=== PATIENT | male | born 1950 | race Caucasian/White ===

== ENCOUNTER 2017-10-07 18:51 | Emergency (ER) | payer MEDICARE ==
[~2017-10-07] VITALS: Ht 182.9 cm; Wt 97.7 kg
[2017-10-07] MEDS ORDERED: ASPIRIN 32325 MG/TAB PO (19:51)
[2017-10-07 20:00] LABS: MEAN CELL VOLUME 96 fl (80.0-100.0); MEAN CORPUSCULAR HGB CONC 33 g/dl (33.0-37.0); MEAN PLATELET VOLUME 10.7 fl (7.4-10.4); PLATELET COUNT 308 K/mm3 (130-400); REDCELL DISTRIBUTION WIDTH-CV 15.9 % (11.5-14.5)
[2017-10-07 20:01] LABS: HEMATOCRIT 55.8 % (42.0-52.0); HEMOGLOBIN 18.5 g/dl (13.5-18.0); MEAN CORPUSCULAR HEMOGLOBIN 32 pg (27.0-31.0)
[2017-10-07 20:08] LABS: ALBUMIN 4.3 gm/dL (3.5-5.0); BILIRUBIN,TOTAL 3.1 mg/dL (0.0-1.0); CALCIUM 10.3 mg/dL (8.4-10.2); CREATININE, serum 1.39 mg/dL (0.66-1.25); POTASSIUM 5.3 mmol/L (3.4-5.0)
[2017-10-07 20:12] LABS: ANISOCYTOSIS 1+; BAND 6 % (0-10); LYMPHOCYTE 13 % (20.0-51.0); NEUTROPHILS 71 % (42.0-75.2); PLATELET ESTIMATE NORMAL (NORMAL)
[2017-10-07 20:25] LABS: TROPONIN-I 0.064 ng/mL (0.000-0.034)
[2017-10-07 20:25] LABS: INR 1.6 (0.8-3.0); PROTHROMBIN TIME 18.6 SECONDS (9.7-12.8)
[2017-10-07 20:28] LABS: PARTIAL THROMBOPLASTIN TIME 29.3 SECONDS (26.0-37.0)
[2017-10-07 20:58] LABS: COLLECTION METHOD CLEAN CATCH
[2017-10-07 21:04] LABS: MUCOUS Present /lpf; PH 5 (5-8); SQUAMOUS EPITHELIAL 0-2 /hpf; URINE APPEARANCE Clear; URINE BACTERIA Rare /hpf; URINE BILIRUBIN Negative (NEGATIVE); URINE BLOOD Negative (NEGATIVE); URINE COLOR Amber; URINE GLUCOSE Negative (NEGATIVE); URINE KETONE Negative (NEGATIVE); URINE LEUKOCYTE ESTERASE Negative (NEGATIVE); URINE NITRATE Negative (NEGATIVE); URINE PROTEIN(semi-quant) 2+ (NEGATIVE); URINE UROBILINOGEN >=4.0 mg/dL (NEGATIVE)
[2017-10-08] MEDS ORDERED: CIALIS10 MG PO (00:35)
[2017-10-08 01:25] VITALS: BP 138/95; PULSE 118
== END 2017-10-08 01:52 | disposition short-term general hospital (02) ==
LOC: COL.ER 18:51
PROVIDERS: Emergency Medicine
DX: I50.9 Heart failure, unspecified (principal); R74.8 Abnormal levels of other serum enzymes; R79.89 Other specified abnormal findings of blood chemistry; Z87.891 Personal history of nicotine dependence; Z79.82 Long term (current) use of aspirin
CPT/HCPCS: J1940; J1956; J7030; Q9967

== ENCOUNTER 2017-11-12 15:21 | Outpatient (CLI) | payer SELFPAY ==
[~2017-11-12] VITALS: Ht 182.9 cm; Wt 88.1 kg
[~2017-11-12 15:21] MED LIST: ASPIRIN 32325 MG/TAB PO; CIALIS10 MG PO
[2017-11-12 16:14] VITALS: BP 118/82; PULSE 104; TEMP 97.7
== END 2017-11-12 17:41 | disposition home or self-care (01) ==
LOC: EUO 15:21
DX: I51.7 Cardiomegaly (principal); Z95.828 Presence of other vascular implants and grafts
CPT/HCPCS: J2997

== ENCOUNTER → 2019-02-14 | Outpatient (CLI) | payer MEDICARE, BC | LOC: COL.RAD 08:00 | DX: M19.012 Primary osteoarthritis, left shoulder (principal) | CPT/HCPCS: J3301; Q9967 ==

== ENCOUNTER → 2020-09-20 | Outpatient (CLI) | payer MEDICARE, BC | LOC: COL.RAD 08:15 | DX: M48.061 Spinal stenosis, lumbar region without neurogenic claudication (principal); M51.26 Other intervertebral disc displacement, lumbar region; M47.816 Spondylosis without myelopathy or radiculopathy, lumbar region; M47.817 Spondylosis without myelopathy or radiculopathy, lumbosacral region; M51.36 Other intervertebral disc degeneration, lumbar region ==

== ENCOUNTER → 2020-10-15 | Outpatient (CLI) | payer MEDICARE, BC | LOC: COL.RAD 10-05 13:15 | DX: G31.9 Degenerative disease of nervous system, unspecified (principal); R90.82 White matter disease, unspecified | CPT/HCPCS: A9585 ==

== ENCOUNTER 2022-05-08 21:57 | Emergency (ER) | payer MEDICARE, BC ==
[~2022-05-08] VITALS: Ht 182.9 cm; Wt 81.8 kg
[2022-05-08 22:13] VITALS: TEMP 98.4
[2022-05-08 23:04] LABS: BASO # 0.1 K/mm3 (0.0-0.2); BASO % 0.6 % (0.0-2.0); EOS # 0.2 K/mm3 (0.0-0.7); EOS % 2.4 % (0.0-4.0); GRAN # 6.2 K/mm3 (1.4-6.5); GRAN % 66.4 % (42.2-75.2); HEMATOCRIT 51.6 % (42.0-52.0); HEMOGLOBIN 17.2 g/dl (13.5-18.0); INR 1.1 (0.8-3.0); LYMPH # 1.9 K/mm3 (1.2-3.4); LYMPH % 20.3 % (20.0-51.0); MEAN CELL VOLUME 93 fl (80.0-100.0); MEAN CORPUSCULAR HEMOGLOBIN 31 pg (27-31); MEAN CORPUSCULAR HGB CONC 33 g/dl (33.0-37.0); MEAN PLATELET VOLUME 10.4 fl (7.4-10.4); MONO # 0.9 K/mm3 (0.1-0.6); MONO % 9.9 % (1.7-9.3); PLATELET COUNT 247 K/mm3 (130-400); PROTHROMBIN TIME 12.8 SECONDS (9.7-12.8); RED BLOOD COUNT 5.53 M/mm3 (4.20-5.60); REDCELL DISTRIBUTION WIDTH-CV 12.3 % (11.5-14.5)
[2022-05-08 23:11] LABS: ALANINE AMINOTRANSFERASE 29 U/L (0-55); ALBUMIN 3.8 gm/dL (3.4-4.8); ALKALINE PHOSPHATASE 79 U/L (40-150); ANION GAP 10 mmol/L (7-16); AST,SGOT 27 U/L (5-34); BILIRUBIN,TOTAL 0.4 mg/dL (0.2-1.2); BLOOD UREA NITROGEN 33 mg/dL (8-26); CALCIUM 8.9 mg/dL (8.4-10.2); CARBON DIOXIDE 22 mmol/L (23-31); CHLORIDE 106 mmol/L (98-107); CREATININE, serum 1.07 mg/dL (0.72-1.25); GLUCOSE 102 mg/dL (70-99); POTASSIUM 3.9 mmol/L (3.5-4.5); SODIUM 138 mmol/L (136-145); TOTAL PROTEIN 6.3 gm/dL (6.2-8.1)
[2022-05-08 23:20] LABS: TROPONIN-I < 0.010 ng/mL (0.00-0.033)
[2022-05-08 23:40] VITALS: BP 144/94; PULSE 98
== END 2022-05-09 00:14 | disposition home or self-care (01) ==
LOC: COL.ER 21:57
PROVIDERS: Emergency Medicine
DX: G45.9 Transient cerebral ischemic attack, unspecified (principal); Z87.891 Personal history of nicotine dependence; Z28.310 Unvaccinated for COVID-19

== ENCOUNTER → 2022-06-08 | Outpatient (CLI) | payer MEDICARE, BC | LOC: COL.VAS 11:03 | DX: G45.9 Transient cerebral ischemic attack, unspecified (principal) ==